=== PATIENT | female | born 1995 | race Caucasian/White ===

== ENCOUNTER 2016-06-13 03:57 | Emergency (ER) | payer BC ==
[~2016-06-13] VITALS: Ht 165.1 cm; Wt 59.1 kg
[2016-06-13 03:59] VITALS: BP 126/38
[2016-06-13] MEDS ORDERED: AMOXICILLIN 50500 MG PO (06:34)
[2016-06-13] MEDS ORDERED: NORCO 325 MG-51 TAB PO (06:34)
[2016-06-13 07:09] VITALS: PULSE 53
== END 2016-06-13 07:04 | disposition home or self-care (01) ==
LOC: COL.ER 03:57
DX: S01.511A Laceration without foreign body of lip, initial encounter (principal); S02.5XXA Fracture of tooth (traumatic), initial encounter for closed fracture; W22.8XXA Striking against or struck by other objects, initial encounter; Y92.89 Other specified places as the place of occurrence of the external cause

== ENCOUNTER 2017-09-30 00:58 | Emergency (ER) | payer BC ==
[~2017-09-30] VITALS: Ht 165.1 cm; Wt 59.1 kg
[~2017-09-30 00:58] MED LIST: AMOXICILLIN 50500 MG PO; NORCO 325 MG-51 TAB PO
[2017-09-30 01:04] VITALS: TEMP 97.5
[2017-09-30 03:24] VITALS: BP 95/43; PULSE 54
== END 2017-09-30 03:25 | disposition home or self-care (01) ==
LOC: COL.ER 00:58
DX: F10.129 Alcohol abuse with intoxication, unspecified (principal); Y90.6 Blood alcohol level of 120-199 mg/100 ml
CPT/HCPCS: J2405; J7030

== ENCOUNTER 2018-06-13 10:12 | Emergency (ER) | payer BC ==
[~2018-06-13] VITALS: Ht 165.1 cm; Wt 60.2 kg
[2018-06-13 10:20] VITALS: BP 115/54; TEMP 98.2
[2018-06-13 10:33] LABS: COLLECTION METHOD CLEAN CATCH
[2018-06-13 10:40] LABS: MUCOUS Present /lpf; PH 6 (5-8); URINE APPEARANCE Cloudy; URINE BACTERIA Rare /hpf; URINE BILIRUBIN Negative (NEGATIVE); URINE BLOOD Negative (NEGATIVE); URINE COLOR Yellow; URINE GLUCOSE Negative (NEGATIVE); URINE KETONE Negative (NEGATIVE); URINE LEUKOCYTE ESTERASE Negative (NEGATIVE); URINE NITRATE Negative (NEGATIVE); URINE PROTEIN(semi-quant) Negative (NEGATIVE); URINE UROBILINOGEN Negative (NEGATIVE)
[2018-06-13] MEDS ORDERED: PRENATAL MVI (10:46)
[2018-06-13 10:57] LABS: BASO % 0.6 % (0.0-2.0); EOS % 0.6 % (0-4.0); GRAN # 4.9 (1.4-6.5); GRAN % 68.7 % (42.2-75.2); HEMATOCRIT 37.9 % (37.0-47.0); HEMOGLOBIN 12.8 g/dl (12.5-16.0); LYMPH # 1.5 (1.2-3.4); LYMPH % 21.6 % (20.0-51.0); MEAN CELL VOLUME 92 fl (80.0-100.0); MEAN CORPUSCULAR HEMOGLOBIN 31 pg (27.0-31.0); MEAN CORPUSCULAR HGB CONC 34 g/dl (33.0-37.0); MEAN PLATELET VOLUME 9.1 fl (7.4-10.4); MONO # 0.6 (0.1-0.6); MONO % 8.2 % (1.7-9.3); PLATELET COUNT 257 K/mm3 (130-400); REDCELL DISTRIBUTION WIDTH-CV 12.7 % (11.5-14.5)
[2018-06-13 15:15] VITALS: PULSE 60
== END 2018-06-13 15:16 | disposition home or self-care (01) ==
LOC: COL.ER 10:12
PROVIDERS: Emergency Medicine; Physician Assistant
DX: O26.891 Other specified pregnancy related conditions, first trimester (principal); R10.2 Pelvic and perineal pain; Z3A.01 Less than 8 weeks gestation of pregnancy

== ENCOUNTER 2019-02-08 02:49 | Inpatient (IN) | payer BC ==
[~2019-02-08] VITALS: Ht 160 cm; Wt 75.0 kg
[2019-02-08] VITALS (37 sets, daily range): BP systolic 104–142; BP diastolic 56–80; PULSE 52–86; TEMP 98–98.7
[~2019-02-08 02:49] MED LIST changes: +PRENATAL MVI
--- NOTE | 2019-02-08 02:50 | NUR ---
PT ARRIVED TO UNIT AMBULATORY WITH SISTER WITH CONCERNS OF SROM. PT ORIENTED TO ROOM, CHANGED INTO GOWN, VS OBTAINED, EFMX2 APPLIED, AMNIOSWAB POSITIVE, SVE OF /-2.
[2019-02-08] MEDS ORDERED: OSCAL 500 TAB500 MG PO (03:21)
[2019-02-08 04:12] LABS: BASO % 0.3 % (0.0-2.0); EOS # 0.2 (0.0-0.7); EOS % 1.3 % (0-4.0); GRAN # 8.2 (1.4-6.5); GRAN % 70.3 % (42.2-75.2); HEMOGLOBIN 11.7 g/dl (12.5-16.0); LYMPH # 2.2 (1.2-3.4); LYMPH % 19.1 % (20.0-51.0); MEAN CELL VOLUME 87 fl (80.0-100.0); MEAN CORPUSCULAR HEMOGLOBIN 29 pg (27.0-31.0); MEAN CORPUSCULAR HGB CONC 33 g/dl (33.0-37.0); MEAN PLATELET VOLUME 10.5 fl (7.4-10.4); MONO % 8.6 % (1.7-9.3); PLATELET COUNT 276 K/mm3 (130-400); RED BLOOD COUNT 4.11 M/mm3 (4.10-5.30); REDCELL DISTRIBUTION WIDTH-CV 13.7 % (11.5-14.5)
[2019-02-08 04:17] LABS: HEMATOCRIT 35.6 % (37.0-47.0)
[2019-02-08 04:48] LABS: TRICYCLIC ANTIDEPRESS URINE NEGATIVE
--- NOTE | 2019-02-08 06:15 | NUR ---
0559- Grant DANIELS CRNA IN ROOM FOR EPIDURAL PLACEMENT. 0601- PT SITTING UP AT BEDSIDE FOR EPIDURAL PLACMENET. 0607- SINGLE SHOT GIVEN BY REAGAN SKELTON. PT TOLERATED WELL. 0615- PT REPOSITIONED IN LEFT WEDGE FOLLOWING EPIDURAL PLACEMENT.
--- NOTE | 2019-02-08 09:06 | NUR ---
0815 SVE UNCHANGED. 6/100/-2. PITOCIN STARTED AT [address] ORDER. 08 [address] PURVIS CALLED AND UPDATED WITH NO NEW ORDERS.
--- NOTE | 2019-02-08 13:05 | NUR ---
1220 SVE COMPLETE/+2. DR PURVIS CALLED AND UPDATED. AND ASKED TO COME FOR DELIVERY. WILL PUSH WITH PATIENT. 1228 DR PURVIS AT BEDSIDE FOR DELIVERY. [address] PURVIS. CORD CLAMPED AND CUT BY DR AND PATIENT. 1234 PLACENTA DELIVERED AT THIS TIME. [employer]. PITOCIN STARTED AT 333/HR PER PROTOCOL. REPAIR DONE BY DR PURVIS AT THIS TIME. [employer].
[2019-02-09] VITALS: BP 101/54; PULSE 55; TEMP 98.4
[2019-02-09 08:00] VITALS: BP 103/63; PULSE 65; TEMP 98
--- NOTE | 2019-02-09 09:15 | NUR ---
Initial visit; Mom and Grandmother thanked Radio Electrician for offering congratulations and God's blessings for the of their baby girl. Radio Electrician thanked family for choosing [facility].
--- NOTE | 2019-02-09 11:09 | NUR ---
gas utility worker met with patient and her mother to assess for needs. Patient stated this her first child and that she resides in [place]. Patient stated she is securing a new apartment in March and until then will stay with her sister in [place]. Patient states she is employed, however, will be taking time off for maternity leave. Patient states she will obtain a car seat and has enrolled in the WIC program. Worker provided resource information and encouraged home visiting programs. Father of the baby is not involved. Patient has a history of marijuana usage, however, no usage indicated during . Awaiting cord blood. Worker collaborated with patient's nurse, Arielle, on the above information. Nursing notes that they have no concerns at this time.
[2019-02-09 11:55] VITALS: BP 107/71; PULSE 69; TEMP 98.6
[2019-02-09 15:08] VITALS: BP 109/69; PULSE 61; TEMP 98.4
[2019-02-09 19:00] VITALS: BP 122/80; PULSE 69; TEMP 98.5
[2019-02-10] MEDS ORDERED: IBU800 M1 PO (08:34)
[2019-02-10 08:37] VITALS: BP 119/68; PULSE 62; TEMP 98.5
--- NOTE | 2019-02-13 15:08 | NUR ---
Patient's infant's cord blood was negative for illegal drugs in system.
== END 2019-02-10 09:56 | disposition home or self-care (01) | DRG 768 ==
LOC: LDRO 02:49 → LDR 03:48 → OB 17:23
PROVIDERS: ADMIT Student in an Organized Health Care Education/Training Program
PROC: 10E0XZZ Delivery of Products of Conception, External Approach (ICD-10-PCS; principal; 2019-02-08)
PROC: 0UQG0ZZ Repair Vagina, Open Approach (ICD-10-PCS; 2019-02-08)
PROC: 0UQMXZZ Repair Vulva, External Approach (ICD-10-PCS; 2019-02-08)
DX: O76 Abnormality in fetal heart rate and rhythm complicating labor and delivery (principal); Z37.0 Single live birth; O71.4 Obstetric high vaginal laceration alone; O99.824 Streptococcus B carrier state complicating childbirth; Z3A.39 39 weeks gestation of pregnancy; O71.82 Other specified trauma to perineum and vulva
CPT/HCPCS: J2540; J2590; J2795; J7120

== ENCOUNTER 2021-01-31 16:07 | Emergency (ER) | payer MEDICAID ==
[~2021-01-31] VITALS: Ht 165.1 cm; Wt 61.4 kg
[~2021-01-31 16:07] MED LIST changes: +IBU800 M1 PO; +OSCAL 500 TAB500 MG PO
[2021-01-31 16:54] VITALS: TEMP 98.3
[2021-01-31 17:15] LABS: COLLECTION METHOD CLEAN CATCH
[2021-01-31 17:26] LABS: HEMATOCRIT 40.2 % (37.0-47.0); HEMOGLOBIN 13.8 g/dl (12.5-16.0); MEAN CELL VOLUME 87 fl (80.0-100.0); MEAN CORPUSCULAR HEMOGLOBIN 30 pg (27.0-31.0); MEAN CORPUSCULAR HGB CONC 34 g/dl (33.0-37.0); MEAN PLATELET VOLUME 9.6 fl (7.4-10.4); PLATELET COUNT 267 K/mm3 (130-400); RED BLOOD COUNT 4.62 M/mm3 (4.10-5.30); REDCELL DISTRIBUTION WIDTH-CV 13.5 % (11.5-14.5)
[2021-01-31 17:31] LABS: MUCOUS Present (NOT PRESENT); PH 5 (5-8); URINE APPEARANCE Hazy (CLEAR/HAZY); URINE BACTERIA Rare (NONE SEEN); URINE BILIRUBIN Negative (NEGATIVE); URINE BLOOD Negative (NEGATIVE); URINE COLOR Yellow (YELLOW); URINE GLUCOSE Negative (NEGATIVE); URINE KETONE 1+ (NEGATIVE); URINE LEUKOCYTE ESTERASE Negative (NEGATIVE); URINE NITRATE Negative (NEGATIVE); URINE PROTEIN(semi-quant) 1+ (NEGATIVE); URINE UROBILINOGEN Negative (NEGATIVE)
[2021-01-31 17:39] LABS: ALBUMIN 3.9 gm/dL (3.5-5.0); BILIRUBIN,TOTAL 1.8 mg/dL (0.2-1.2); CALCIUM 8.4 mg/dL (8.4-10.2); CREATININE, serum 0.63 mg/dL (0.57-1.11); POTASSIUM 3.6 mmol/L (3.5-4.5); TOTAL PROTEIN 7.9 gm/dL (6.2-8.1)
[2021-01-31 17:58] LABS: BAND 7 % (0-10); LYMPHOCYTE 9 % (20.0-51.0); NEUTROPHILS 82 % (42.0-75.2); PLATELET ESTIMATE NORMAL (NORMAL)
[2021-01-31] MEDS ORDERED: PHENERGAN 25 TA25 MG PO (18:19)
[2021-01-31 18:34] VITALS: BP 111/71; PULSE 82
== END 2021-01-31 18:34 | disposition home or self-care (01) ==
LOC: COL.ER 16:07
PROVIDERS: Nurse Practitioner
DX: O21.9 Vomiting of pregnancy, unspecified (principal); Z3A.00 Weeks of gestation of pregnancy not specified; Z20.822 Contact with and (suspected) exposure to COVID-19
CPT/HCPCS: J2405; J7030

== ENCOUNTER 2021-08-04 12:07 | Outpatient (CLI) | payer MEDICAID ==
[~2021-08-04 12:07] MED LIST changes: +PHENERGAN 25 TA25 MG PO
[2021-08-04 12:30] VITALS: BP 112/69; PULSE 72; TEMP 98.5
--- NOTE | 2021-08-04 12:30 | NUR ---
1210- Pt arrives on unit ambulatory with spouse, Mal. Pt states she had "8 contractions overnight" and then woke up with pink-tinged spotting when she used toilet paper this morning. Pt states she had one contractions this past hour. Denies LOF but states she thought she might have been leaking fluid a few days ago but it stopped. Pt into bathroom, changes into gown. 1215- Pt into bed, EFM and TOCO on and tracing. O2 sat monitor on and tracing maternal HR. VSS. Assessments completed. 1231- Amniotrace by this RN, negative after having Pt cough. SVE 3/50/-3, posterior cervix. Normal discharge noted on exam glove, no pink or red blood.
[2021-08-04 12:50] VITALS: BP 108/69; PULSE 71
--- NOTE | 2021-08-04 12:50 | NUR ---
1248- Pt denies feeling any contractions while being here, possibly felt a small one after vaginal exam. Discussed order to discharge Pt home. Discussed labor precautions and movement/kick counts. Pt and spouse deny questions. EFM and TOCO off, Pt up to change into street clothes 1251- Discharge paperwork given and explained. Pt denies questions. Ambulates off unit in stable condition with
== END 2021-08-04 13:00 | disposition home or self-care (01) ==
LOC: LDRO 12:07
DX: O47.1 False labor at or after 37 completed weeks of gestation (principal); O26.853 Spotting complicating pregnancy, third trimester; Z3A.39 39 weeks gestation of pregnancy

== ENCOUNTER 2021-08-04 14:44 | Inpatient (IN) | payer MEDICAID ==
[~2021-08-04] VITALS: Ht 165.1 cm; Wt 77.3 kg
[2021-08-04] VITALS (29 sets, daily range): BP systolic 94–125; BP diastolic 50–83; PULSE 56–102; TEMP 97.9–98.3
--- NOTE | 2021-08-04 14:45 | NUR ---
1445- Pt arrives on unit ambulatory with complaints of contractions every 2-4 mins. Pt was just discharged after a labor check at 1300. Pt changes into gown. 1448- Pt into bed. EFM and TOCO on and tracing well. VSS. O2 sat monitor on and tracing maternal HR. Pt denies LOF. States she continues to have a small amount of pink-tinged discharge when she wipes with toilet paper. +FM. 1453- UC palpated by this RN, moderate. SVE by this RN, /-3, head ballotable. Pt denies any changes to previous assessment.
--- NOTE | 2021-08-04 15:11 | NUR ---
1511- Category I FHR tracing noted. EFM and TOCO off. Pt up to ambulate in hallway.
--- NOTE | 2021-08-04 16:39 | NUR ---
1556- Pt back to bed after being on BB, EFM and TOCO on and tracing. SVE unchanged from previos exam. Pt verbalizes that UCs are getting stronger. 1620- Updated Pt on POC. Pt excited to be admited. 1635- IV start without difficulty, labs obtained. Saline lock at this time so Pt can ambulate. 1639- EFM and TOCO off. Pt up to void and ambulate in hallway.
[2021-08-04 16:54] LABS: BASO % 0.2 % (0.0-2.0); EOS # 0.1 K/mm3 (0.0-0.7); EOS % 0.5 % (0.0-4.0); GRAN # 9.5 K/mm3 (1.4-6.5); GRAN % 76.9 % (42.2-75.2); LYMPH # 1.8 K/mm3 (1.2-3.4); LYMPH % 14.4 % (20.0-51.0); MEAN CELL VOLUME 80 fl (80.0-100.0); MEAN CORPUSCULAR HGB CONC 31 g/dl (33.0-37.0); MEAN PLATELET VOLUME 10.2 fl (7.4-10.4); MONO # 0.9 K/mm3 (0.1-0.6); MONO % 7.6 % (1.7-9.3); PLATELET COUNT 278 K/mm3 (130-400); RED BLOOD COUNT 3.94 M/mm3 (4.10-5.30); REDCELL DISTRIBUTION WIDTH-CV 14.5 % (11.5-14.5)
[2021-08-04 16:55] LABS: HEMATOCRIT 31.5 % (37.0-47.0); HEMOGLOBIN 9.9 g/dl (12.5-16.0); MEAN CORPUSCULAR HEMOGLOBIN 25 pg (27-31)
--- NOTE | 2021-08-04 17:30 | NUR ---
1723- Pt back to bed, EFM and TOCO on and tracing. Recheck SVE, minimal change, -/-2. Pt agrees with plan to start Pitocin augmentation. Discussed protocol, Pt denies questions.
--- NOTE | 2021-08-04 18:35 | NUR ---
183 - Dot Palacios CRNA at bedside for epidural placement. Pt positioned to sitting on edge of bed. Epidural procedure explained to patient, verbalized understanding. 183 - Difficulty tracing FHR due to maternal positioning. 1834 - Single shot by REAGAN Choi at this time. Pt denies any adverse reactions. 184 - Pt positioned to wedge right with pillow support. Safety precautions reviewed. Bed in low and locked position. Call light within reach. Plan of care reviewed. Significant other supportive at bedside. See anesthesia record.
--- NOTE | 2021-08-04 19:10 | NUR ---
Wayne catheter placed at this time to dependent drainage. Clear yellow urine returned. Secured to leg with statlock. SVE /-2. Pt repositioned to wedge left for comfort.
--- NOTE | 2021-08-04 20:35 | NUR ---
Dr. Bai at bedside. AROM at this time, moderate amount of clear fluid out. SVE /-2. Pt repositioned to wedge right with peanut ball. Plan of care reviewed. Significant other supportive at bedside.
--- NOTE | 2021-08-04 23:33 | NUR ---
2315 - Pt reports feeling more rectal pressure. SVE complete/+2. Pt positioned back to wedge right. Dr. Bai notified. 2325 - Wayne catheter removed at this time 350 clear yellow urine out. Reviewed pushing techniques with patient, verbalized understanding. 2330 - Bed broke down and room set up for delivery. Dr. Bai gowned and gloved at perineum. Nursery RN Kristen Molina at bedside. Initial push at this time. 2333 - Spontaneous delivery of viable infant girl. placed to mothers abdomen, care of assumed to ZULEMA Flores. Cord blood obtained. Pitocin off. 2337 - Spontaneous delivery of placenta. Fundal massage by Dr. Bai, minimal bleeding noted. Pitocin restarted at 333 mL/hr. Intact perineum per Dr. Bai. Epidural off. 2340 - Pericare provided. New chux and ice pack beneath patient. Pt repositioned in bed for comfort. recovery started. See physician delivery note.
[2021-08-05] VITALS (10 sets, daily range): BP systolic 99–145; BP diastolic 55–89; PULSE 70–93; TEMP 97.4–99.2
--- NOTE | 2021-08-05 03:22 | NUR ---
0145 PT LEGS FEEL GOOD. UP TO BATHROOM,PT VOIDED, CHANGE OF GOWN, PAD AND UNDERWEAR ON. MOVED TO 207 AT THIS TIME.
--- NOTE | 2021-08-05 09:35 | NUR ---
Initial visit; Parents thanked Crew Boss for offering congratulations and God's blessings for the of their son. Crew Boss thanked family for choosing our hospital. They responded by stating they had their daughter here as well and had good experiences both times.
[2021-08-06 09:00] VITALS: BP 104/62; PULSE 64; TEMP 97.9
--- NOTE | 2021-08-06 09:00 | NUR ---
Rests in bed, alert. Ibuprofen 800 mg given as ordered.
[2021-08-06] MEDS ORDERED: IBU800 M1 PO (09:23)
--- NOTE | 2021-08-06 11:00 | NUR ---
Rests in bed, alert. Tylenol 1000 mg given per request and as ordered. Discharge instructions given, verbalizes understanding.
== END 2021-08-06 12:20 | disposition home or self-care (01) | DRG 806 ==
LOC: LDRO 14:44 → OB 16:24 → LDR 16:24 → OB 08-05 02:15
PROVIDERS: ADMIT Student in an Organized Health Care Education/Training Program
PROC: 10E0XZZ Delivery of Products of Conception, External Approach (ICD-10-PCS; principal; 2021-08-04)
DX: O99.02 Anemia complicating childbirth (principal); O98.22 Gonorrhea complicating childbirth; Z37.0 Single live birth; O71.82 Other specified trauma to perineum and vulva; Z3A.39 39 weeks gestation of pregnancy
CPT/HCPCS: J2590; J7120

== ENCOUNTER 2023-03-01 21:18 | Outpatient (CLI) | payer MEDICAID ==
[~2023-03-01] VITALS: Ht 162.6 cm; Wt 80.0 kg
--- NOTE | 2023-03-01 21:25 | NUR ---
2124- PT PRESENTS TO LDR COMPLAINING OF CONTRACTIONS. TO ROOM LR4 PER WHEELCHAIR, CHANGED INTO GOWN. 2131- EFM X2 APPLIED. PT DENIES VAG BLEEDING AND STATES SHE IS FEELING HER BABY MOVE. PT REPORTS SOME INCREASED WETNESS BUT NOT SURE IF HER WATER HAS BROKEN. SHE REPORTS THAT HER CONTRACTIONS BECAME MORE PAINFUL THIS EVENING AROUND 1900. PLAN OF CARE FOR LABOR CHECK DISCUSSED AND QUESTIONS ANSWERED. 2139- MONITORS ADJUSTED. 2144- AMNITRACE NEG FOR ROM. SVE BY THIS NURSE 2-3 WITH NO POOLING OF FLUID NOTED. PLAN OF CARE DISCUSSED. 2154- NURSING ADMISSION HISTORY AND ASSESSMENT COMPLETE. ORAL HYDRATION PROVIDED. 2249- NURSE TO BEDSIDE. PT REPORTS THAT HER CONTRACTIONS ARE NOT CONSISTENT BUT SOME HAVE BEEN PAINFUL. SVE BY THIS NURSE UNCHANGED. DISCUSSED PLAN OF CARE FOR DISMISSAL AND QUESTIONS ANSWERED. PT IS AGREEABLE TO GOING HOME AT THIS TIME AND RETURNING TO LDR FOR INCREASING LABOR SIGNS. 2251- PT OFF MONITORS FOR DISMISSAL. 2254- DR MARTINEZ CALLED CHARTED. ORDERS FOR DISMISSAL. 2309- DISMISSAL INSTRUCTIONS GIVEN. QUESTIONS ANSWERED. PT SIGNS PAPERWORK. PT DISMISSED TO HOME AMBULATORY ACCOMPANIED BY FATHER OF BABY.
[2023-03-01] MEDS ORDERED: LR 1,000 ML IV PRN (21:45)
[2023-03-01 22:00] VITALS: BP 117/73; PULSE 90; TEMP 98.5
== END 2023-03-01 23:10 | disposition home or self-care (01) ==
LOC: LDRO 21:18 → LDR 21:25 → LDRO 23:10
DX: O47.1 False labor at or after 37 completed weeks of gestation (principal); Z3A.38 38 weeks gestation of pregnancy
CPT/HCPCS: OP

== ENCOUNTER 2023-03-03 03:48 | Inpatient (IN) | payer MEDICAID ==
[~2023-03-03] VITALS: Ht 162.6 cm; Wt 80.0 kg
[2023-03-03] VITALS (33 sets, daily range): BP systolic 94–130; BP diastolic 54–86; PULSE 52–125; TEMP 98–98.1
--- NOTE | 2023-03-03 04:00 | NUR ---
0400 G4L2 38.2 WEEK GEST TO LR6 WITH C/O CONTRACTIONS STARTING AROUND 2300 AND BECOMING CLOSER THRU THE NIGHT. EFM ON. SVE /-2 VERY POSTERIOR CERVIX. ADM ASSESSMENT COMPLETED.
--- NOTE | 2023-03-03 04:45 | NUR ---
0445 SVE /-[address] AVILA NOTIFIED AND ORDER TO ADMIT IN PATIENT. WOOD GETTER CALLED FOR EPID PLACEMENT 0500 IV STARTED IN LEFT WRIST. PERMITS SIGNED.
[2023-03-03 05:14] LABS: BASO % 0.2 % (0.0-2.0); EOS # 0.1 K/mm3 (0.0-0.7); GRAN # 10.6 K/mm3 (1.4-6.5); GRAN % 71.9 % (42.2-75.2); HEMOGLOBIN 11.5 g/dl (12.5-16.0); LYMPH # 2.7 K/mm3 (1.2-3.4); LYMPH % 18.4 % (20.0-51.0); MEAN CELL VOLUME 84 fl (80.0-100.0); MEAN CORPUSCULAR HEMOGLOBIN 27 pg (27-31); MEAN CORPUSCULAR HGB CONC 32 g/dl (33.0-37.0); MEAN PLATELET VOLUME 10.2 fl (7.4-10.4); MONO # 1.2 K/mm3 (0.1-0.6); PLATELET COUNT 283 K/mm3 (130-400); RED BLOOD COUNT 4.34 M/mm3 (4.10-5.30); REDCELL DISTRIBUTION WIDTH-CV 14.2 % (11.5-14.5)
[2023-03-03 05:15] LABS: HEMATOCRIT 36.5 % (37.0-47.0)
--- NOTE | 2023-03-03 05:25 | NUR ---
0525 MANAGER INFRASTRUCTURE HERE. SITTING ON SIDE OF BED FOR EPID PLACEMENT 0532 EPID DOSED. SEE ANESTHSIA RECORD FOR MORE INFORMATION
--- NOTE | 2023-03-03 07:19 | NUR ---
07- Called Dr Bai to report pt status. SVE at [address] Bai asked for an updated SVE. 724- Called Dr Bai back current SVE . [facility]. Dr Bai requested another SVE in an hour.
--- NOTE | 2023-03-03 08:35 | NUR ---
0835- Dr Bai called for an update. RN was just walking into pts room, will call back with an update. 0843- Called Dr Bai with updated SVE /1, very bulgy bag of water. [facility] [address] [facility]. Dr Bai said she would be here soon to AROM.
--- NOTE | 2023-03-03 11:06 | NUR ---
1106- SVE /+1. 1107- CALLED DR PURVIS TO UPDATE. DR PURVIS SAID SHE WAS ON HER WAY. 1120- TANNER REMOVED. 1125- DR PURVIS AT BEDSIDE PREPARING FOR DELIVERY. 1128- PT BEGAN PUSHING. 1130- SONTANEOUS VAGINAL DELIVERY OF A VIABLE BABY GIRL. BABY WAS PLACED ON MOM'S CHEST AND CARE OF INFANT WAS TAKEN OVER BY NURSERY ROBE. FOB CUT CORD. BABY WAS TAKEN TO WARMER PER MOM'S REQUEST TO BE CLEANED AND WEIGHED. 1134- SPONTANEOUS DELIVERY OF THE PLACENTA BY DR PURVIS. PITOCIN WAS THEN STARTED PER PROTOCOL. A FIRST DEGREE VAGINAL REPAIR WAS DONE BY DR PURVIS. EBL WAS [address] PURVIS. PT WAS REPOSITIONED, BLEEDING WNL.
[2023-03-04 01:00] VITALS: BP 96/49; PULSE 65; TEMP 98.3
[2023-03-04 06:57] VITALS: BP 103/69; PULSE 56; TEMP 97.6
[2023-03-04] MEDS ORDERED: IBU800 M1 PO (08:58)
[2023-03-04] MEDS ORDERED: ROXICODONE 55 MG/TAB PO (08:58)
--- NOTE | 2023-03-04 09:37 | NUR ---
Initial visit attempt; Family resting, [employer] left card offering congratulations and God's blessings for the of their daughter along with information regarding the availability of Spiritual Care at our hospital.
== END 2023-03-04 14:55 | disposition home or self-care (01) | DRG 807 ==
LOC: LDRO 03:48 → LDR 03:48 → LDRO 03:54 → LDR 03:55 → OB 03:55
PROVIDERS: Obstetrics & Gynecology; ADMIT Student in an Organized Health Care Education/Training Program
PROC: 10E0XZZ Delivery of Products of Conception, External Approach (ICD-10-PCS; principal; 2023-03-03)
PROC: 0HQ9XZZ Repair Perineum Skin, External Approach (ICD-10-PCS; 2023-03-03)
PROC: 10907ZC Drainage of Amniotic Fluid, Therapeutic from Products of Conception, Via Natural or Artificial Opening (ICD-10-PCS; 2023-03-03)
DX: O70.0 First degree perineal laceration during delivery (principal); Z37.0 Single live birth; Z3A.38 38 weeks gestation of pregnancy
CPT/HCPCS: J2590; J2795; J7120